=== PATIENT | female | born 1955 | race Caucasian/White ===

== ENCOUNTER → 2017-12-30 | Outpatient (CLI) | payer OTHER ==
[~2017-12-30] MED LIST: CETIRIZINE HYDR10 MG PO; CITALOPRAM HYDR40 MG PO; DULER200 PO; FLUVOXAMINE50 MG PO; LORAZEPAM1 MG PO; MEDROL DOSEPAK4 MG PO; METOPROLOL TART50 M1 PO; RISPERIDONE0.5 MG PO; VENTOLIN H0.09 MG/AC INH; ZITHROMAX250 MG PO
[2017-12-30 15:06] LABS: BASO % 0.3 % (0.0-1.0); EOS % 0.3 % (1.0-4.0); HEMATOCRIT 39.4 % (37.0-47.0); HEMOGLOBIN 13.6 g/dl (12.0-16.0); LYMPH # 1.8 10*3/uL (1.3-4.4); LYMPH % 19.7 % (27.0-41.0); MEAN CELL VOLUME 92.3 fl (81.0-99.0); MEAN CORPUSCULAR HGB 31.9 pg (27.0-31.0); MEAN CORPUSCULAR HGB CONC 34.5 g/dl (33.0-37.0); MONO # 0.9 10*3/uL (0.1-1.0); MONO % 9.4 % (3.0-9.0); NEUT # 6.4 10*3/uL (2.3-7.9); NEUT % 70.1 % (47.0-73.0); PLATELET COUNT AUTOMATED 338 10*3/uL (130-400); RED BLOOD COUNT 4.27 10*6/uL (4.10-5.10); RED CELL DISTRI WIDTH 14.5 % (0-14.5); WHITE BLOOD COUNT 9.1 10*3/uL (4.8-10.8)
[2017-12-30 15:12] LABS: ALBUMIN 4.4 gm/dl (3.1-4.5); ALKALINE PHOSPHATASE 61 U/L (45-117); BUN 10 mg/dl (7-24); CHLORIDE 101 mmol/L (98-107); CREATININE 1.01 mg/dL (0.55-1.02); POTASSIUM 4.2 mmol/L (3.5-5.1); SGOT/AST 25 IU/L (3-35); SGPT/ALT 26 U/L (12-78); SODIUM 133 mmol/L (136-145); TOTAL PROTEIN 8.1 gm/dL (6.4-8.2)
== END | disposition home or self-care (01) ==
LOC: LAB 13:39
PROVIDERS: Internal Medicine
DX: J44.9 Chronic obstructive pulmonary disease, unspecified (principal); I10 Essential (primary) hypertension; Z87.891 Personal history of nicotine dependence

== ENCOUNTER 2017-12-31 13:14 | Emergency (ER) | payer OTHER ==
[~2017-12-31] VITALS: Wt 65.8 kg
[2017-12-31 14:10] LABS: BASO # 0.1 10*3/uL (0.0-0.1); BASO % 0.4 % (0.0-1.0); EOS % 0.2 % (1.0-4.0); HEMATOCRIT 37.5 % (37.0-47.0); LYMPH # 1.7 10*3/uL (1.3-4.4); LYMPH % 13.1 % (27.0-41.0); MEAN CELL VOLUME 92.1 fl (81.0-99.0); MEAN CORPUSCULAR HGB 31.9 pg (27.0-31.0); MEAN CORPUSCULAR HGB CONC 34.7 g/dl (33.0-37.0); MONO % 7.5 % (3.0-9.0); NEUT # 10.1 10*3/uL (2.3-7.9); PLATELET COUNT AUTOMATED 331 10*3/uL (130-400); RED BLOOD COUNT 4.07 10*6/uL (4.10-5.10); RED CELL DISTRI WIDTH 14.3 % (0-14.5)
[2017-12-31 14:23] LABS: ACT PARTIAL THROMBO TIME 27.6 SECONDS (20.8-31.5)
[2017-12-31 14:24] LABS: ALBUMIN 4.2 gm/dl (3.1-4.5); ALKALINE PHOSPHATASE 54 U/L (45-117); BUN 8 mg/dl (7-24); CHLORIDE 96 mmol/L (98-107); CREATININE 0.94 mg/dL (0.55-1.02); POTASSIUM 3.6 mmol/L (3.5-5.1); SGOT/AST 19 IU/L (3-35); SGPT/ALT 22 U/L (12-78); SODIUM 130 mmol/L (136-145); TOTAL PROTEIN 7.5 gm/dL (6.4-8.2)
[2017-12-31 14:25] LABS: TROPONIN I < 0.015 ng/ml (<0.045)
== END 2017-12-31 14:50 | disposition left against medical advice (07) ==
LOC: ED 13:14
PROVIDERS: Nurse Practitioner Family
DX: R07.89 Other chest pain (principal); Z79.899 Other long term (current) drug therapy; Z88.0 Allergy status to penicillin; Z88.2 Allergy status to sulfonamides; Z88.1 Allergy status to other antibiotic agents

== ENCOUNTER 2024-02-15 05:21 | Inpatient (IN) | payer OTHER ==
[~2024-02-15] VITALS: Ht 175.3 cm; Wt 48.5 kg
[~2024-02-15 05:21] MED LIST changes: +ATIVAN0.5 MG PO; +ATIVAN1 MG PO; +BENZTROPINE ME0.5 MG PO; +CEFDINIR300 MG PO; +CITALOPRAM40 MG PO; +FAMOTIDINE20 M1 PO; +RISPERDAL0.5 MG PO; +VITAMIN B121000 MC3 PO; +VITAMIN B12500 MC2 PO; +VOLTAREN50 M1 PO
[2024-02-15 05:23] VITALS: BP 141/73
[2024-02-15 06:00] LABS: MEAN PLATELET VOLUME 8.5 fl (9.6-12.3)
[2024-02-15 06:03] LABS: BASO % 0.2 % (0.0-1.0); BUN 27 mg/dl (9-23); CHLORIDE 100 mmol/L (98-107); EOS % 0.3 % (1.0-4.0); HEMATOCRIT 29.6 % (37.0-47.0); LYMPH # 1.4 10*3/uL (1.3-4.4); LYMPH % 9.7 % (27.0-41.0); MEAN CELL VOLUME 96.1 fl (81.0-99.0); MEAN CORPUSCULAR HGB 32.8 pg (27.0-31.0); MEAN CORPUSCULAR HGB CONC 34.1 g/dl (33.0-37.0); MONO # 1.5 10*3/uL (0.1-1.0); MONO % 10.1 % (3.0-9.0); NEUT # 11.6 10*3/uL (2.3-7.9); NEUT % 79.1 % (47.0-73.0); PLATELET COUNT AUTOMATED 370 10*3/uL (130-400); POTASSIUM 3.2 mmol/L (3.4-5.1); RED BLOOD COUNT 3.08 10*6/uL (4.10-5.10); RED CELL DISTRI WIDTH 13.3 % (0-14.5); WHITE BLOOD COUNT 14.6 10*3/uL (4.8-10.8)
[2024-02-15] MEDS ORDERED: POTASSIUM CHLORIDE 20 MEQ TAB PO ONE (06:20)
[2024-02-15 07:59] LABS: BILIRUBIN Negative (Negative); BLOOD 1+ (Negative); CLARITY Clear (Clear); COLOR Yellow (Yellow); GLUCOSE Negative (Negative); KETONE Negative (Negative); LEUKO ESTERASE 2+ (Negative); NITRITE Negative (Negative); PH 6.5 (4.5-8.0); UROBILINOGEN 0.2 E.U./dl (0.0-1.0)
[2024-02-15 08:18] LABS: BACTERIA 3+; RBC 16-20 rbc/hpf (0-2); WBC 21-30 wbc/hpf (0-5)
[2024-02-15] MEDS ORDERED: Ceftriaxone Sodium 1 GM/10 ML SYR IV ONE (08:25)
[2024-02-15] MEDS ORDERED: SODIUM CHLORIDE 0.9% 1,000 ML IV SCH ×2 (09:05→15:50)
[2024-02-15 11:27] VITALS: BP 139/64
[2024-02-15] MEDS ORDERED: LORazepam 0.5 MG TAB PO PRN (12:30)
[2024-02-15] MEDS ORDERED: CYANOCOBALAMIN 1,000 MCG/ML VIAL IM ONE (12:35)
[2024-02-15] MEDS ORDERED: DICLOFENAC SODIUM 50 MG TAB PO SCH (14:00)
[2024-02-15] MEDS ORDERED: RISPERIDONE 0.5 MG TAB PO SCH (14:00)
[2024-02-15 18:00] VITALS: BP 114/53
[2024-02-15] MEDS ORDERED: TYLENOL325 M1 PO (18:38)
[2024-02-15] MEDS ORDERED: VISTARIL25 MG PO (18:39)
[2024-02-15 20:00] VITALS: BP 132/79
[2024-02-15] MEDS ORDERED: Metoprolol Tartrate 50 MG TAB PO SCH (22:00)
[2024-02-15] MEDS ORDERED: BENZTROPINE MESYLATE 1 MG TAB PO SCH (22:00)
[2024-02-16] VITALS: BP 124/58
[2024-02-16] MEDS ORDERED: ACETAMINOPHEN 325 MG TAB PO PRN (00:20)
[2024-02-16 07:20] LABS: BASO # 0.1 10*3/uL (0.0-0.1); BASO % 0.7 % (0.0-1.0); EOS # 0.1 10*3/uL (0.0-0.4); EOS % 1.6 % (1.0-4.0); HEMATOCRIT 28.6 % (37.0-47.0); LYMPH # 1.5 10*3/uL (1.3-4.4); LYMPH % 16.6 % (27.0-41.0); MEAN CORPUSCULAR HGB 32.9 pg (27.0-31.0); MEAN CORPUSCULAR HGB CONC 32.9 g/dl (33.0-37.0); MEAN PLATELET VOLUME 8.7 fl (9.6-12.3); MONO % 11.1 % (3.0-9.0); NEUT # 6.2 10*3/uL (2.3-7.9); NEUT % 69.6 % (47.0-73.0); PLATELET COUNT AUTOMATED 318 10*3/uL (130-400); RED BLOOD COUNT 2.86 10*6/uL (4.10-5.10); RED CELL DISTRI WIDTH 13.7 % (0-14.5)
[2024-02-16 07:38] LABS: ALKALINE PHOSPHATASE 83 U/L (46-116); BUN 26 mg/dl (9-23); CHLORIDE 105 mmol/L (98-107); POTASSIUM 3.8 mmol/L (3.4-5.1); SGPT/ALT 69 U/L (5-49); TOTAL PROTEIN 5.8 gm/dL (6.0-8.0)
[2024-02-16 08:00] VITALS: BP 170/88
[2024-02-16] MEDS ORDERED: Ceftriaxone Sodium 1 GM in SYRINGE INFUSION 10 ML IV SCH (10:00)
[2024-02-16] MEDS ORDERED: Enoxaparin Sodium 40 MG/0.4 ML SYR SC SCH (10:00)
[2024-02-16] MEDS ORDERED: FAMOTIDINE 20 MG TAB PO SCH (10:00)
[2024-02-16] MEDS ORDERED: CITALOPRAM 20 MG TAB PO SCH (10:00)
[2024-02-16 12:00] VITALS: BP 127/48
[2024-02-16] MEDS ORDERED: CHAIR CUSHION DEVICE ONE (15:15)
[2024-02-16] MEDS ORDERED: HEEL PROTECTOR DEVICE ONE (15:15)
[2024-02-16] MEDS ORDERED: FOAM BANDAGE 5X5 T ONE ×2 (15:39→15:45)
[2024-02-16] MEDS ORDERED: FOAM BANDAGE 1 EACH BANDAGE T ONE (15:39)
[2024-02-16] MEDS ORDERED: LEPTOSPERMUM HONEY 0.5 OZ TUBE T ONE (15:39)
[2024-02-16 16:00] VITALS: BP 121/50
[2024-02-16 20:00] VITALS: BP 123/51
[2024-02-17] VITALS (7 sets, daily range): BP systolic 117–155; BP diastolic 49–68
[2024-02-17 06:25] LABS: BASO # 0.1 10*3/uL (0.0-0.1); BASO % 0.9 % (0.0-1.0); EOS # 0.3 10*3/uL (0.0-0.4); EOS % 3.1 % (1.0-4.0); HEMATOCRIT 28.3 % (37.0-47.0); LYMPH # 1.8 10*3/uL (1.3-4.4); LYMPH % 22.1 % (27.0-41.0); MEAN CELL VOLUME 101.1 fl (81.0-99.0); MEAN CORPUSCULAR HGB 32.9 pg (27.0-31.0); MEAN CORPUSCULAR HGB CONC 32.5 g/dl (33.0-37.0); MEAN PLATELET VOLUME 9.1 fl (9.6-12.3); MONO # 0.9 10*3/uL (0.1-1.0); MONO % 11.5 % (3.0-9.0); PLATELET COUNT AUTOMATED 297 10*3/uL (130-400); RED CELL DISTRI WIDTH 13.8 % (0-14.5); WHITE BLOOD COUNT 8.1 10*3/uL (4.8-10.8)
[2024-02-17 06:49] LABS: BUN 20 mg/dl (9-23); CHLORIDE 107 mmol/L (98-107); POTASSIUM 4.1 mmol/L (3.4-5.1)
[2024-02-18] VITALS: BP 157/69
[2024-02-18] MEDS ORDERED: hydrOXYzine pamoate 25 MG CAP PO ONE (02:20)
[2024-02-18 08:00] VITALS: BP 145/64
[2024-02-18] MEDS ORDERED: Nicotine 21 MG PATCH T SCH (10:00)
[2024-02-18] MEDS ORDERED: FOAM BANDAGE 5X5 T ONE (10:06)
[2024-02-18] MEDS ORDERED: LEPTOSPERMUM HONEY 0.5 OZ TUBE T ONE (10:06)
[2024-02-18 12:00] VITALS: BP 148/68
[2024-02-18] MEDS ORDERED: Ondansetron Hydrochloride 4 MG/2 ML VIAL IV PRN (15:30)
[2024-02-18 16:00] VITALS: BP 150/55
[2024-02-18] MEDS ORDERED: RISPERIDONE 0.5 MG TAB PO SCH (18:00)
[2024-02-18 20:02] VITALS: BP 146/44
[2024-02-18] MEDS ORDERED: Mirtazapine 15 MG TAB PO SCH (22:00)
[2024-02-19] VITALS: BP 158/56
[2024-02-19 08:00] VITALS: BP 191/69
[2024-02-19 08:19] LABS: BUN 18 mg/dl (9-23); CHLORIDE 109 mmol/L (98-107); POTASSIUM 4.8 mmol/L (3.4-5.1)
[2024-02-19 09:44] VITALS: BP 146/59
[2024-02-19 12:00] VITALS: BP 148/60
[2024-02-19 16:00] VITALS: BP 152/74
[2024-02-19 20:00] VITALS: BP 154/62
[2024-02-20 00:06] VITALS: BP 159/73
[2024-02-20 07:28] LABS: BASO # 0.1 10*3/uL (0.0-0.1); EOS # 0.3 10*3/uL (0.0-0.4); LYMPH # 2.7 10*3/uL (1.3-4.4); LYMPH % 29.5 % (27.0-41.0); MEAN CELL VOLUME 99.7 fl (81.0-99.0); MEAN CORPUSCULAR HGB 32.2 pg (27.0-31.0); MEAN CORPUSCULAR HGB CONC 32.3 g/dl (33.0-37.0); MEAN PLATELET VOLUME 8.6 fl (9.6-12.3); MONO # 1.2 10*3/uL (0.1-1.0); MONO % 12.6 % (3.0-9.0); NEUT # 4.9 10*3/uL (2.3-7.9); NEUT % 53.1 % (47.0-73.0); PLATELET COUNT AUTOMATED 358 10*3/uL (130-400); RED BLOOD COUNT 3.01 10*6/uL (4.10-5.10); RED CELL DISTRI WIDTH 13.6 % (0-14.5); WHITE BLOOD COUNT 9.1 10*3/uL (4.8-10.8)
[2024-02-20 07:52] LABS: ALKALINE PHOSPHATASE 86 U/L (46-116); BUN 15 mg/dl (9-23); CHLORIDE 107 mmol/L (98-107); POTASSIUM 4.3 mmol/L (3.4-5.1); SGPT/ALT 105 U/L (5-49); TOTAL PROTEIN 5.6 gm/dL (6.0-8.0)
[2024-02-20 08:00] VITALS: BP 148/63
[2024-02-20 16:00] VITALS: BP 151/48
[2024-02-20] MEDS ORDERED: CYANOCOBALAMIN 1,000 MCG/ML VIAL IM ONE (19:10)
[2024-02-20 20:00] VITALS: BP 136/50
[2024-02-21] VITALS: BP 143/58
[2024-02-21 08:00] VITALS: BP 174/82
[2024-02-21 10:20] VITALS: BP 166/78
[2024-02-21 11:57] VITALS: BP 144/59
[2024-02-21] MEDS ORDERED: MIRTAZAPINE15 M2 PO (12:43)
[2024-02-21] MEDS ORDERED: RISPERIDONE0.5 MG PO (12:43)
[2024-02-21 16:00] VITALS: BP 165/73
== END 2024-02-21 17:03 | DRG 871 ==
LOC: ED 05:21 → EDHOLD 09:10 → 4E 09:10 → EDHOLD 10:36 → 4E 17:23
PROVIDERS: Internal Medicine; ADMIT Internal Medicine; ATTEND Internal Medicine
PROC: 0HQ1XZZ Repair Face Skin, External Approach (ICD-10-PCS; principal; 2024-02-15)
DX: A41.9 Sepsis, unspecified organism (principal); G93.41 Metabolic encephalopathy; N39.0 Urinary tract infection, site not specified; E87.1 Hypo-osmolality and hyponatremia; F33.3 Major depressive disorder, recurrent, severe with psychotic symptoms; E44.0 Moderate protein-calorie malnutrition; K81.0 Acute cholecystitis; F23 Brief psychotic disorder; Z68.1 Body mass index [BMI] 19.9 or less, adult; I95.1 Orthostatic hypotension; R26.81 Unsteadiness on feet; J44.9 Chronic obstructive pulmonary disease, unspecified; E53.8 Deficiency of other specified B group vitamins; S01.111A Laceration without foreign body of right eyelid and periocular area, initial encounter; R25.1 Tremor, unspecified; R63.4 Abnormal weight loss; F41.8 Other specified anxiety disorders; S51.011A Laceration without foreign body of right elbow, initial encounter; X58.XXXA Exposure to other specified factors, initial encounter; Y93.89 Activity, other specified; Y92.89 Other specified places as the place of occurrence of the external cause; Z88.1 Allergy status to other antibiotic agents; Z88.0 Allergy status to penicillin; Z88.2 Allergy status to sulfonamides; Y99.8 Other external cause status

== ENCOUNTER 2024-09-16 15:53 | Emergency (ER) | payer OTHER ==
[~2024-09-16] VITALS: Ht 175.2 cm; Wt 59.0 kg
[~2024-09-16 15:53] MED LIST changes: +CIPROFLOXACIN500 M4 PO; +DICLOFENAC SOD50 MG PO; +FAMOTIDINE40 MG PO; +MECLIZINE HCL25 M2 PO; +MELATONIN5 M6 PO; +METRONIDAZOLE500 M1 PO; +MIRTAZAPINE15 M2 PO; +NICODERM T; +SERTRALINE HYD100 MG PO; +TYLENOL325 M1 PO; +VISTARIL25 MG PO; +ZESTRIL10 MG PO
[2024-09-16] MEDS ORDERED: Ketorolac Tromethamine 15 MG/ML VIAL IV ONE (16:10)
[2024-09-16] MEDS ORDERED: LORazepam 1 MG TAB PO ONE (16:10)
[2024-09-16] MEDS ORDERED: SODIUM CHLORIDE 0.9% 1,000 ML IV ONE (16:10)
[2024-09-16 16:39] LABS: BASO % 0.3 % (0.0-1.0); EOS % 0.4 % (1.0-4.0); HEMATOCRIT 36.2 % (37.0-47.0); MEAN CELL VOLUME 96.3 fl (81.0-99.0); MEAN CORPUSCULAR HGB 31.4 pg (27.0-31.0); MEAN CORPUSCULAR HGB CONC 32.6 g/dl (33.0-37.0); MEAN PLATELET VOLUME 8.7 fl (9.6-12.3); MONO # 1.2 10*3/uL (0.1-1.0); MONO % 10.7 % (3.0-9.0); NEUT # 8.5 10*3/uL (2.3-7.9); NEUT % 77.1 % (47.0-73.0); PLATELET COUNT AUTOMATED 329 10*3/uL (130-400); RED BLOOD COUNT 3.76 10*6/uL (4.10-5.10); RED CELL DISTRI WIDTH 13.7 % (0-14.5); WHITE BLOOD COUNT 10.9 10*3/uL (4.8-10.8)
[2024-09-16 17:06] LABS: POTASSIUM 4.2 mmol/L (3.4-5.1)
[2024-09-16] MEDS ORDERED: Ondansetron4 MG PO (18:15)
[2024-09-16] MEDS ORDERED: PEPCID20 MG PO (18:15)
== END 2024-09-16 18:41 | disposition home or self-care (01) ==
LOC: ED 15:53
PROVIDERS: Emergency Medicine
DX: R10.12 Left upper quadrant pain (principal); R11.2 Nausea with vomiting, unspecified; J44.9 Chronic obstructive pulmonary disease, unspecified; F41.9 Anxiety disorder, unspecified; Z88.0 Allergy status to penicillin; Z88.2 Allergy status to sulfonamides; Z88.1 Allergy status to other antibiotic agents; Z88.8 Allergy status to other drugs, medicaments and biological substances; F32.A Depression, unspecified; E78.00 Pure hypercholesterolemia, unspecified; I10 Essential (primary) hypertension

== ENCOUNTER 2025-01-09 14:42 | Emergency (ER) | payer OTHER ==
[~2025-01-09] VITALS: Wt 56.7 kg
[~2025-01-09 14:42] MED LIST changes: +Ondansetron4 MG PO; +PEPCID20 MG PO
[2025-01-09] MEDS ORDERED: LORazepam 0.5 MG TAB PO ONE (15:05)
[2025-01-09 15:12] LABS: BILIRUBIN Negative (Negative); BLOOD Negative (Negative); CLARITY Cloudy (Clear); COLOR Yellow (Yellow); GLUCOSE Negative (Negative); KETONE Negative (Negative); LEUKO ESTERASE 1+ (Negative); NITRITE Negative (Negative); PH 6.5 (4.5-8.0)
[2025-01-09 15:16] LABS: BASO # 0.1 10*3/uL (0.0-0.1); BASO % 0.4 % (0.0-1.0); EOS # 0.1 10*3/uL (0.0-0.4); EOS % 1.1 % (1.0-4.0); MEAN CELL VOLUME 93.9 fl (81.0-99.0); MEAN CORPUSCULAR HGB 31.2 pg (27.0-31.0); MEAN CORPUSCULAR HGB CONC 33.3 g/dl (33.0-37.0); MEAN PLATELET VOLUME 8.4 fl (9.6-12.3); MONO % 8.1 % (3.0-9.0); NEUT # 8.7 10*3/uL (2.3-7.9); NEUT % 69.8 % (47.0-73.0); PLATELET COUNT AUTOMATED 368 10*3/uL (130-400); RED BLOOD COUNT 4.26 10*6/uL (4.10-5.10); RED CELL DISTRI WIDTH 13.9 % (0-14.5); WHITE BLOOD COUNT 12.5 10*3/uL (4.8-10.8)
[2025-01-09 15:19] LABS: BACTERIA TRACE
[2025-01-09 15:54] LABS: POTASSIUM 3.8 mmol/L (3.4-5.1); TOTAL PROTEIN 7.1 gm/dL (6.0-8.0)
[2025-01-09] MEDS ORDERED: cefTRIAXone Sodium 1 GM/10 ML SYR IV ONE (16:00)
[2025-01-09] MEDS ORDERED: Pantoprazole Sodium 40 MG VIAL IV ONE (16:00)
[2025-01-09] MEDS ORDERED: SODIUM CHLORIDE 0.9% 1,000 ML IV ONE (16:00)
[2025-01-09] MEDS ORDERED: CIPRO500 MG PO (16:32)
== END 2025-01-09 17:19 | disposition home or self-care (01) ==
LOC: ED 14:42
PROVIDERS: Nurse Practitioner Family
DX: N39.0 Urinary tract infection, site not specified (principal); F41.1 Generalized anxiety disorder; K21.9 Gastro-esophageal reflux disease without esophagitis; I10 Essential (primary) hypertension; E78.5 Hyperlipidemia, unspecified; J44.9 Chronic obstructive pulmonary disease, unspecified; F32.A Depression, unspecified; F41.9 Anxiety disorder, unspecified; Z79.899 Other long term (current) drug therapy; Z88.0 Allergy status to penicillin; Z88.1 Allergy status to other antibiotic agents; Z88.2 Allergy status to sulfonamides

== ENCOUNTER 2025-01-29 10:21 | Inpatient (IN) | payer OTHER ==
[~2025-01-29] VITALS: Ht 170 cm; Wt 58.0 kg
[~2025-01-29 10:21] MED LIST changes: +AMLODIPINE BESY10 MG PO; +ATARAX,VISTARIL10 MG PO; +BUSPAR5 MG PO; +CIPRO500 MG PO; +HYDROXYZINE PAM25 M1 PO; +REQUIP2 MG PO; +ROPINIROLE HY0.25 MG PO
[2025-01-29] MEDS ORDERED: hydrOXYzine pamoate 25 MG CAP PO PRN (10:50)
[2025-01-29] MEDS ORDERED: Ziprasidone Mesylate 20 MG VIAL IM PRN (11:00)
[2025-01-29] MEDS ORDERED: LORazepam 1 MG TAB PO PRN (11:00)
[2025-01-29] MEDS ORDERED: Water, Sterile 10 ML VIAL IM PRN (11:05)
[2025-01-29] MEDS ORDERED: Magnesium Hydroxide 30 ML UDC PO PRN (12:55)
[2025-01-29] MEDS ORDERED: ACETAMINOPHEN 325 MG TAB PO PRN (12:55)
[2025-01-29] MEDS ORDERED: MG-AL HYDROXIDE/SIMETICONE 30 ML UDC PO PRN (12:55)
[2025-01-29] MEDS ORDERED: NICODERM T (14:56)
[2025-01-29] MEDS ORDERED: REXULTI1 MG PO (14:56)
[2025-01-29 16:04] VITALS: BP 140/65
[2025-01-29] MEDS ORDERED: DICLOFENAC SODIUM 50 MG TAB PO PRN (16:20)
[2025-01-29 20:00] VITALS: BP 161/78
[2025-01-29] MEDS ORDERED: Menthol/Zinc Oxide 4 GM THIN T SCH (21:00)
[2025-01-29] MEDS ORDERED: FAMOTIDINE 20 MG TAB PO SCH (21:00)
[2025-01-29] MEDS ORDERED: busPIRone Hydrochloride 5 MG TAB PO SCH (21:00)
[2025-01-29] MEDS ORDERED: LORazepam 0.5 MG TAB PO SCH (21:00)
[2025-01-29] MEDS ORDERED: Meclizine Hydrochloride 25 MG TAB PO SCH (21:00)
[2025-01-29] MEDS ORDERED: Metoprolol Tartrate 50 MG TAB PO SCH (22:00)
[2025-01-30 06:48] LABS: BASO # 0.1 10*3/uL (0.0-0.1); EOS # 0.3 10*3/uL (0.0-0.4); EOS % 2.9 % (1.0-4.0); HEMATOCRIT 39.3 % (37.0-47.0); MEAN CELL VOLUME 93.8 fl (81.0-99.0); MEAN CORPUSCULAR HGB 30.8 pg (27.0-31.0); MEAN CORPUSCULAR HGB CONC 32.8 g/dl (33.0-37.0); MEAN PLATELET VOLUME 8.2 fl (9.6-12.3); MONO # 0.9 10*3/uL (0.1-1.0); MONO % 10.1 % (3.0-9.0); NEUT # 4.4 10*3/uL (2.3-7.9); NEUT % 47.4 % (47.0-73.0); PLATELET COUNT AUTOMATED 396 10*3/uL (130-400); RED BLOOD COUNT 4.19 10*6/uL (4.10-5.10); RED CELL DISTRI WIDTH 13.3 % (0-14.5); WHITE BLOOD COUNT 9.4 10*3/uL (4.8-10.8)
[2025-01-30 07:30] LABS: POTASSIUM 4.5 mmol/L (3.4-5.1); TOTAL PROTEIN 7.3 gm/dL (6.0-8.0)
[2025-01-30 07:35] LABS: VITAMIN D, 25-HYDROXY 26.7 ng/mL (30-100)
[2025-01-30] MEDS ORDERED: hydrOXYzine pamoate 25 MG CAP PO PRN (08:40)
[2025-01-30 08:51] VITALS: BP 148/76
[2025-01-30] MEDS ORDERED: amLODIPine besylate 10 MG TAB PO SCH (09:00)
[2025-01-30] MEDS ORDERED: VORTIOXETINE HYDROBROMIDE 10 MG TAB PO SCH (09:00)
[2025-01-30] MEDS ORDERED: clonAZEPAM 0.5 MG TAB PO SCH (09:00)
[2025-01-30] MEDS ORDERED: DULoxetine Hydrochloride 30 MG CAP PO SCH (09:00)
[2025-01-30] MEDS ORDERED: LIDOCAINE 1 EA PATCH T SCH (09:00)
[2025-01-30] MEDS ORDERED: BREXPIPRAZOLE 1 MG TABLET PO SCH (09:00)
[2025-01-30] MEDS ORDERED: Ondansetron Hydrochloride 4 MG TAB PO SCH (10:00)
[2025-01-30 20:00] VITALS: BP 121/50
[2025-01-30] MEDS ORDERED: clonAZEPAM 1 MG TAB PO SCH (21:00)
[2025-01-30] MEDS ORDERED: Albuterol Sulf/Ipratropium 3 ML VIAL NEB SCH (22:10)
[2025-01-31] MEDS ORDERED: Albuterol Sulf/Ipratropium 3 ML VIAL NEB PRN (08:40)
[2025-01-31 08:45] VITALS: BP 150/66
[2025-01-31] MEDS ORDERED: rOPINIRole Hydrochloride 0.25 MG TAB PO SCH (09:00)
[2025-01-31] MEDS ORDERED: Menthol/Zinc Oxide 4 GM THIN T PRN (13:54)
[2025-01-31 20:00] VITALS: BP 129/69
[2025-02-01 07:54] LABS: BILIRUBIN Negative (Negative); BLOOD Negative (Negative); CLARITY Clear (Clear); COLOR Yellow (Yellow); GLUCOSE Negative (Negative); KETONE Negative (Negative); LEUKO ESTERASE 1+ (Negative); NITRITE Negative (Negative); PH 6.5 (4.5-8.0)
[2025-02-01 07:57] VITALS: BP 138/58
[2025-02-01 11:32] LABS: BACTERIA 2+; WBC 21-30 wbc/hpf (0-5)
[2025-02-01] MEDS ORDERED: traMADol Hydrochloride 50 MG TAB PO PRN (16:35)
[2025-02-01 20:00] VITALS: BP 135/69
[2025-02-01] MEDS ORDERED: DULoxetine Hydrochloride 60 MG CAP PO SCH (21:00)
[2025-02-01] MEDS ORDERED: Ciprofloxacin Hydrochloride 500 MG TAB PO SCH (21:00)
[2025-02-02 08:00] VITALS: BP 129/62
[2025-02-02] MEDS ORDERED: Cholecalciferol 2,000 UNIT TABLET (50 MCG) PO SCH (09:00)
[2025-02-02] MEDS ORDERED: DULoxetine Hydrochloride 30 MG CAP PO SCH (09:00)
[2025-02-02 20:00] VITALS: BP 129/56
[2025-02-03 06:32] LABS: BASO # 0.1 10*3/uL (0.0-0.1); EOS # 0.3 10*3/uL (0.0-0.4); HEMATOCRIT 35.7 % (37.0-47.0); MEAN CELL VOLUME 93.2 fl (81.0-99.0); MEAN CORPUSCULAR HGB 31.3 pg (27.0-31.0); MEAN CORPUSCULAR HGB CONC 33.6 g/dl (33.0-37.0); MEAN PLATELET VOLUME 7.9 fl (9.6-12.3); MONO # 1.1 10*3/uL (0.1-1.0); MONO % 12.6 % (3.0-9.0); NEUT # 4.1 10*3/uL (2.3-7.9); NEUT % 46.8 % (47.0-73.0); PLATELET COUNT AUTOMATED 315 10*3/uL (130-400); RED BLOOD COUNT 3.83 10*6/uL (4.10-5.10); RED CELL DISTRI WIDTH 12.8 % (0-14.5); WHITE BLOOD COUNT 8.8 10*3/uL (4.8-10.8)
[2025-02-03] MEDS ORDERED: SODIUM CHLORIDE 0.9% 100 ML BAG IV ONE (06:55)
[2025-02-03] MEDS ORDERED: IOHEXOL 350 MG/ML 100 ML VIAL IV ONE ×2 (06:55→09:29)
[2025-02-03 07:20] LABS: TOTAL PROTEIN 6.8 gm/dL (6.0-8.0)
[2025-02-03 08:00] VITALS: BP 150/90
[2025-02-03] MEDS ORDERED: SODIUM CHLORIDE 0.9% 100 ML IV ONE (09:29)
[2025-02-03] MEDS ORDERED: LINEZOLID 600 MG TAB PO SCH (13:00)
[2025-02-03] MEDS ORDERED: Nitrofurantoin Monohydrate/N 100 MG CAP PO SCH (17:00)
[2025-02-03 20:00] VITALS: BP 150/53
[2025-02-04 08:13] VITALS: BP 165/79
[2025-02-04 20:00] VITALS: BP 130/55
[2025-02-05 07:42] LABS: POTASSIUM 3.8 mmol/L (3.4-5.1)
[2025-02-05 07:47] LABS: BASO # 0.1 10*3/uL (0.0-0.1); BASO % 1.1 % (0.0-1.0); EOS # 0.3 10*3/uL (0.0-0.4); EOS % 3.2 % (1.0-4.0); HEMATOCRIT 40.1 % (37.0-47.0); MEAN CELL VOLUME 94.4 fl (81.0-99.0); MEAN CORPUSCULAR HGB 30.8 pg (27.0-31.0); MEAN CORPUSCULAR HGB CONC 32.7 g/dl (33.0-37.0); MEAN PLATELET VOLUME 8.6 fl (9.6-12.3); MONO # 0.9 10*3/uL (0.1-1.0); MONO % 10.4 % (3.0-9.0); NEUT # 3.9 10*3/uL (2.3-7.9); NEUT % 45.3 % (47.0-73.0); RED BLOOD COUNT 4.25 10*6/uL (4.10-5.10); RED CELL DISTRI WIDTH 12.9 % (0-14.5); WHITE BLOOD COUNT 8.5 10*3/uL (4.8-10.8)
[2025-02-05 07:53] LABS: PLATELET COUNT AUTOMATED 418 10*3/uL (130-400)
[2025-02-05 08:00] VITALS: BP 130/64
[2025-02-05 20:00] VITALS: BP 132/72
[2025-02-06 08:00] VITALS: BP 127/87
[2025-02-06] MEDS ORDERED: clonAZEPAM 0.5 MG TAB PO SCH (08:20)
[2025-02-06] MEDS ORDERED: VITAMIN D350 MCG PO (08:32)
[2025-02-06] MEDS ORDERED: CLONAZEPAM0.5 M2 PO (08:32)
[2025-02-06] MEDS ORDERED: DULOXETINE HCL60 MG PO (08:32)
[2025-02-06] MEDS ORDERED: DULOXETINE HCL30 MG PO (08:32)
[2025-02-07 08:28] VITALS: BP 115/75
[2025-02-07 20:00] VITALS: BP 129/72
[2025-02-08 09:25] VITALS: BP 132/72
[2025-02-08 20:00] VITALS: BP 136/74
[2025-02-09 08:00] VITALS: BP 127/56
[2025-02-09 20:00] VITALS: BP 140/63
[2025-02-10 08:00] VITALS: BP 132/73
[2025-02-10 20:00] VITALS: BP 138/66
[2025-02-11 06:16] LABS: BASO # 0.1 10*3/uL (0.0-0.1); EOS # 0.2 10*3/uL (0.0-0.4); EOS % 1.8 % (1.0-4.0); HEMATOCRIT 38.7 % (37.0-47.0); MEAN CELL VOLUME 92.4 fl (81.0-99.0); MEAN CORPUSCULAR HGB CONC 33.6 g/dl (33.0-37.0); MEAN PLATELET VOLUME 8.2 fl (9.6-12.3); MONO # 1.1 10*3/uL (0.1-1.0); MONO % 11.2 % (3.0-9.0); NEUT # 4.9 10*3/uL (2.3-7.9); NEUT % 49.1 % (47.0-73.0); PLATELET COUNT AUTOMATED 429 10*3/uL (130-400); RED BLOOD COUNT 4.19 10*6/uL (4.10-5.10); RED CELL DISTRI WIDTH 12.6 % (0-14.5); WHITE BLOOD COUNT 9.9 10*3/uL (4.8-10.8)
[2025-02-11 06:52] LABS: TOTAL PROTEIN 6.8 gm/dL (6.0-8.0)
[2025-02-11 09:09] VITALS: BP 128/63
[2025-02-11 20:00] VITALS: BP 138/74
[2025-02-11] MEDS ORDERED: ACETAMINOPHEN 500 MG TAB PO SCH (21:00)
[2025-02-11] MEDS ORDERED: traMADol Hydrochloride 50 MG TAB PO SCH (21:00)
[2025-02-12 08:00] VITALS: BP 145/75
== END 2025-02-12 15:11 | DRG 885 ==
LOC: 3N 10:21
PROVIDERS: Counselor Professional; Internal Medicine; Nurse Practitioner; Nurse Practitioner Women's Health; ADMIT Psychiatry & Neurology Psychiatry; ATTEND Psychiatry & Neurology Psychiatry
PROC: GZHZZZZ Group Psychotherapy (ICD-10-PCS; principal; 2025-01-31)
PROC: GZ56ZZZ Individual Psychotherapy, Supportive (ICD-10-PCS; 2025-01-31)
DX: F33.9 Major depressive disorder, recurrent, unspecified (principal); N18.30 Chronic kidney disease, stage 3 unspecified; R45.851 Suicidal ideations; E87.1 Hypo-osmolality and hyponatremia; N39.0 Urinary tract infection, site not specified; E44.1 Mild protein-calorie malnutrition; F41.0 Panic disorder [episodic paroxysmal anxiety]; F41.1 Generalized anxiety disorder; F17.210 Nicotine dependence, cigarettes, uncomplicated; K21.00 Gastro-esophageal reflux disease with esophagitis, without bleeding; E78.5 Hyperlipidemia, unspecified; E55.9 Vitamin D deficiency, unspecified; D72.821 Monocytosis (symptomatic); B95.8 Unspecified staphylococcus as the cause of diseases classified elsewhere; I73.9 Peripheral vascular disease, unspecified; I12.9 Hypertensive chronic kidney disease with stage 1 through stage 4 chronic kidney disease, or unspecified chronic kidney disease; J44.9 Chronic obstructive pulmonary disease, unspecified; G25.81 Restless legs syndrome; Z88.1 Allergy status to other antibiotic agents; Z88.0 Allergy status to penicillin; Z88.8 Allergy status to other drugs, medicaments and biological substances; Z68.21 Body mass index [BMI] 21.0-21.9, adult

== ENCOUNTER 2025-03-20 08:32 | Emergency (ER) | payer OTHER ==
[~2025-03-20] VITALS: Wt 51.3 kg
[~2025-03-20 08:32] MED LIST changes: +'KLONOPIN0.5 MG PO; +CLONAZEPAM0.5 M2 PO; +CLONAZEPAM1 MG PO; +DULOXETINE HCL30 MG PO; +DULOXETINE HCL60 MG PO; +EXELON1 EACH T; +NYST SUSP PO; +REXULTI1 MG PO; +TRAMADOL HCL50 MG PO; +VITAMIN D350 MCG PO; +[UNRECOGNIZED DRUG - OTHER] T
== END 2025-03-20 10:13 ==
LOC: ED 08:32
DX: S09.90XA Unspecified injury of head, initial encounter (principal); F17.210 Nicotine dependence, cigarettes, uncomplicated; Z90.89 Acquired absence of other organs; Z88.8 Allergy status to other drugs, medicaments and biological substances; Z88.0 Allergy status to penicillin; Z88.2 Allergy status to sulfonamides; W06.XXXA Fall from bed, initial encounter; Y93.89 Activity, other specified; Y92.128 Other place in nursing home as the place of occurrence of the external cause; Y99.8 Other external cause status

== ENCOUNTER 2025-05-15 10:56 | Emergency (ER) | payer OTHER ==
[~2025-05-15] VITALS: Ht 175.2 cm; Wt 56.2 kg
[~2025-05-15 10:56] MED LIST changes: +ARICEPT10 M1 PO; +CEFTRIAXONE2 G1 IV; +GABAPENTIN100 M2 PO; +HYDROXYZINE PAM50 MG PO; +RIVASTIGMINE1 EAC1 T; +VANCOCIN125 M1 PO
[2025-05-15] MEDS ORDERED: Acetaminophen/Oxycodone 5 MG/325 MG TABLET PO ONE (11:00)
[2025-05-15] MEDS ORDERED: Tdap Vaccine 0.5 ML SYR (Adult Vaccine) IM ONE (11:00)
== END 2025-05-15 12:27 | disposition home or self-care (01) ==
LOC: ED 10:56
DX: S01.01XA Laceration without foreign body of scalp, initial encounter (principal); J44.9 Chronic obstructive pulmonary disease, unspecified; F17.210 Nicotine dependence, cigarettes, uncomplicated; F32.A Depression, unspecified; F41.9 Anxiety disorder, unspecified; I10 Essential (primary) hypertension; K21.9 Gastro-esophageal reflux disease without esophagitis; E78.5 Hyperlipidemia, unspecified; Z88.1 Allergy status to other antibiotic agents; Z88.0 Allergy status to penicillin; Z88.2 Allergy status to sulfonamides; Z88.8 Allergy status to other drugs, medicaments and biological substances; W19.XXXA Unspecified fall, initial encounter; Y93.89 Activity, other specified; Y92.89 Other specified places as the place of occurrence of the external cause; Y99.8 Other external cause status

== ENCOUNTER → 2025-06-13 | Outpatient (CLI) | payer OTHER ==
[~2025-06-13] MED LIST changes: +BARIUM SULFATE 98% 340 GM BOT PO ONE
== END | disposition home or self-care (01) ==
LOC: RAD/SH 08:54
PROVIDERS: ATTEND Internal Medicine
DX: R13.10 Dysphagia, unspecified (principal)